=== PATIENT | female | born 1975 | race Caucasian/White ===

== ENCOUNTER 2022-12-01 17:08 | Emergency (ER) | payer MEDICAID ==
[~2022-12-01] VITALS: Ht 170.2 cm; Wt 90.0 kg
[2022-12-01 17:46] LABS: BASOPHILS % 0.6 % (0.0-2.0); EOSINOPHILS % 0.7 % (0.0-5.0); HEMATOCRIT. 36.8 % (36.0-48.0); HEMOGLOBIN. 12.7 g/dL (12.0-16.0); MEAN CORPUSCULAR HEMOGLOBIN 32.8 pg (28.0-32.0); MEAN CORPUSCULAR VOLUME 94.6 fL (81.0-99.0); MEAN PLATELET VOLUME 8.2 fl (7.4-10.4); MONOCYTES % 4.8 % (2.0-8.0); NEUTROPHILS % 79.9 % (40.0-76.0); PLATELET 300 x1000/uL (130-400); RED BLOOD CELL COUNT 3.89 mill/uL (4.2-5.4)
[2022-12-01 17:58] LABS: CHLORIDE 116 mEq/L (98-107)
[2022-12-01 18:00] LABS: HCG SCREEN NEGATIVE
[2022-12-01 18:09] LABS: ETHANOL BLOOD 297 mg/dL
[2022-12-01 19:58] VITALS: BP 122/82
== END 2022-12-01 20:46 | disposition home or self-care (01) ==
LOC: ER 17:08
DX: T51.91XA Toxic effect of unspecified alcohol, accidental (unintentional), initial encounter (principal); Y92.89 Other specified places as the place of occurrence of the external cause
CPT/HCPCS: 36415; 80053; 80320; 84703; 85025; 99283; G0480